=== PATIENT | female | born 1965 | race Caucasian/White ===

== ENCOUNTER 2016-08-26 14:28 | Emergency (ER) | payer MEDICARE, OTHER ==
[2016-08-26 16:00] LABS: HEMOGLOBIN 13.6 gm/dl (12.3-15.3); RED BLOOD COUNT 4.73 M/UL (4.00-5.10); WHITE BLOOD COUNT 6.5 K/UL (4.5-11.0)
[2016-08-26 16:25] LABS: BUN/CREATININE RATIO 29 (0-10)
== END 2016-08-26 19:30 | disposition home or self-care (01) ==
LOC: ER1 14:28
PROVIDERS: Family Medicine
DX: R51 Headache (principal); R22.31 Localized swelling, mass and lump, right upper limb; I10 Essential (primary) hypertension; Z88.0 Allergy status to penicillin; G89.29 Other chronic pain; M54.2 Cervicalgia; M54.9 Dorsalgia, unspecified
CPT/HCPCS: 36415; 70450; 71010; 80053; 80307; 81001; 82550; 82553; 83874; 84484; 85025; 93005; 99284; G0480; J2310

== ENCOUNTER → 2016-09-08 | Outpatient (CLI) | payer MEDICARE ==
[2016-09-08 11:53] LABS: BUN/CREATININE RATIO 29 (0-10)
== END ==
LOC: LAB 10:52
PROVIDERS: Internal Medicine Cardiovascular Disease
DX: E78.2 Mixed hyperlipidemia (principal)
CPT/HCPCS: 36415; 80053; 80061; 82550

== ENCOUNTER → 2020-08-07 | Outpatient (CLI) | payer MEDICARE, OTHER ==
[~2020-08-07] MED LIST: AMITRIPTYLINE H25 MG PO; BUDESONIDE-FO10.2 G1 INH; COLACE 100MG C100 MG PO; GABAPENTIN300 MG PO; HYDROCODON-ACE1 EAC4 PO; IBU800 MG PO; KETOROLAC TROME10 MG PO; LIPITOR40 MG PO; MULTI-VITAMIN1 EACH PO; NAPROSYN EC 50500 MG PO; PHENERGAN 25 MG25 M1 PO; PROAIR DIGIHAL90 MCG PO; VALIUM 5 MG TAB5 MG PO; VITAMIN C500 M4 PO; ZETIA10 MG PO; ZINC50 M2 PO; ZOFRAN 4 MG TAB4 MG PO; [UNRECOGNIZED DRUG - OTHER] PO
== END ==
LOC: US 07-16 15:00
DX: E78.5 Hyperlipidemia, unspecified (principal); N64.4 Mastodynia
CPT/HCPCS: 36415; 76641-LT; 80061

== ENCOUNTER → 2020-08-20 | Outpatient (CLI) | payer MEDICARE, OTHER ==
[2020-08-20 13:10] LABS: HEMOGLOBIN 13.7 gm/dl (12.3-15.3); RED BLOOD COUNT 4.66 M/UL (4.00-5.10); WHITE BLOOD COUNT 7.6 K/UL (4.5-11.0)
== END ==
LOC: OPSV2 11:30
PROVIDERS: Obstetrics & Gynecology
DX: Z01.812 Encounter for preprocedural laboratory examination (principal); N90.60 Unspecified hypertrophy of vulva; Z88.0 Allergy status to penicillin; Z88.8 Allergy status to other drugs, medicaments and biological substances
CPT/HCPCS: 36415; 81001; 85025

== ENCOUNTER → 2020-09-04 | Day surgery (SDC) | payer MEDICARE, OTHER | END | disposition home or self-care (01) | LOC: OR 06:06 | PROVIDERS: Obstetrics & Gynecology | PROC: 0UBMXZZ Excision of Vulva, External Approach (ICD-10-PCS; principal; 2020-09-04 07:30) | DX: N90.60 Unspecified hypertrophy of vulva (principal); N95.2 Postmenopausal atrophic vaginitis; R32 Unspecified urinary incontinence; E78.5 Hyperlipidemia, unspecified; G89.29 Other chronic pain; M54.9 Dorsalgia, unspecified; J45.909 Unspecified asthma, uncomplicated; K76.0 Fatty (change of) liver, not elsewhere classified; M79.7 Fibromyalgia; R73.03 Prediabetes; G43.909 Migraine, unspecified, not intractable, without status migrainosus; Z88.0 Allergy status to penicillin; Z88.5 Allergy status to narcotic agent; Z88.8 Allergy status to other drugs, medicaments and biological substances; Z79.899 Other long term (current) drug therapy; Z20.822 Contact with and (suspected) exposure to COVID-19 | CPT/HCPCS: J1100; J1580; J2001; J2250; J2405; J2704; J2795; J3010; J7120; U0002 ==

== ENCOUNTER → 2020-10-07 | Outpatient (CLI) | payer MEDICARE, OTHER | LOC: MAMO 09-15 11:30 | DX: Z12.31 Encounter for screening mammogram for malignant neoplasm of breast (principal) | CPT/HCPCS: 77063; 77067 ==

== ENCOUNTER → 2021-02-20 | Outpatient (CLI) | payer MEDICARE | LOC: KOH-I 10:30 | DX: M53.9 Dorsopathy, unspecified (principal); M96.1 Postlaminectomy syndrome, not elsewhere classified; M15.9 Polyosteoarthritis, unspecified; M47.816 Spondylosis without myelopathy or radiculopathy, lumbar region | CPT/HCPCS: 72148 ==

== ENCOUNTER → 2021-10-22 | Outpatient (CLI) | payer MEDICARE, OTHER ==
[~2021-10-22] MED LIST changes: +ALBUTEROL2.5 MG/3 M INH; +BETAMETHASONE D60 ML TOP; +CYCLOBENZAPRINE10 MG PO; +HYDROCHLOROTH12.5 MG PO; +KENALOG CREAM 080 GM TOP; +METRONIDAZOLE45 G1 TOP; +ONE DAILY MUL400 MCG PO; +OXYBUTYNIN CHLOR5 MG PO; +PROAIR DIGIHAL90 MCG INH; -PROAIR DIGIHAL90 MCG PO
[2021-10-22 12:01] LABS: HEMOGLOBIN 13.1 gm/dl (12.3-15.3); RED BLOOD COUNT 4.48 M/UL (4.00-5.10)
[2021-10-22 12:30] LABS: BUN/CREATININE RATIO 29 (0-10)
== END ==
LOC: OPSV2 10:00
PROVIDERS: Anesthesiology; Obstetrics & Gynecology
DX: Z01.818 Encounter for other preprocedural examination (principal); N36.42 Intrinsic sphincter deficiency (ISD)
CPT/HCPCS: 71046; 80048; 81001; 85025; 93005

== ENCOUNTER → 2021-11-04 | Day surgery (SDC) | payer MEDICARE | END | disposition home or self-care (01) | LOC: OR 08:00 | DX: N36.42 Intrinsic sphincter deficiency (ISD) (principal); N39.46 Mixed incontinence; N90.89 Other specified noninflammatory disorders of vulva and perineum; E78.5 Hyperlipidemia, unspecified; K21.9 Gastro-esophageal reflux disease without esophagitis; J45.909 Unspecified asthma, uncomplicated; Z88.0 Allergy status to penicillin; Z88.8 Allergy status to other drugs, medicaments and biological substances; Z88.6 Allergy status to analgesic agent; Z79.899 Other long term (current) drug therapy | CPT/HCPCS: J1580; J2405; J3010; L8603 ==

== ENCOUNTER → 2021-12-09 | Outpatient (CLI) | payer MEDICARE ==
[2021-12-09 12:59] LABS: HEMOGLOBIN 14.2 gm/dl (12.3-15.3); RED BLOOD COUNT 4.78 M/UL (4.00-5.10); WHITE BLOOD COUNT 6.5 K/UL (4.5-11.0)
[2021-12-09 13:20] LABS: BUN/CREATININE RATIO 23 (0-10)
== END ==
LOC: LAB 12:12
PROVIDERS: Internal Medicine Cardiovascular Disease
DX: Z00.00 Encounter for general adult medical examination without abnormal findings (principal); M19.042 Primary osteoarthritis, left hand; M79.7 Fibromyalgia; E78.2 Mixed hyperlipidemia; E55.9 Vitamin D deficiency, unspecified; K76.0 Fatty (change of) liver, not elsewhere classified; R73.03 Prediabetes; M19.032 Primary osteoarthritis, left wrist
CPT/HCPCS: 36415; 73110; 73130; 73590; 80053; 80061; 83036; 85027